=== PATIENT | female | born 1985 | race American Indian/Alaskan Native ===

== ENCOUNTER 2017-01-01 14:42 | Emergency (ER) | payer MEDICARE ==
[2017-01-01 14:50] VITALS: BP 148/92
[2017-01-01] MEDS ORDERED: FUL-GLO OP ONE (19:30)
[2017-01-01] MEDS ORDERED: TETRACAINE 0.5% OU PRN (19:30)
--- NOTE | 2017-01-01 20:07 | Emergency Department Report ---
ED Eye Problem HPI - General Chief complaint: Eye Problems Stated complaint: EYES SWOLLEN, RED Time Seen by Provider: 01/01/17 16:50 Source: patient Mode of arrival: Ambulatory Limitations: No Limitations - History of Present Illness Initial comments: This is a 31-year-old female nontoxic, well nourished in appearance, no acute signs of distress presents to the ED with c/o of bilateral eye redness and irritation x2 days. Patient denies any trauma. Denies any foreign body sensation. Patient stated she was putting on make-up and false eyelashes prior to these symptoms. Patient also stated she wake up with bilateral eye crusting and itching. Patient denies any eye pain. Denies any visual changes, blurry vision, chest pain, shortness of breathe, fever, chills, headache, stiff neck, numbness, or tingling. Patient denies any allergies. PMH includes HTN. MD chief complaint: eye redness, other (irritation) -: days(s) (2) Onset Description: gradual Location: both eyes Place: home If Injury: none Eye Symptoms: burning, redness, itching, discharge Severity: mild Severity scale (0 -10): 8 If Pain, Quality: burning Consistency: constant Associated Symptoms: none. denies: headache, neck pain, nausea/vomiting, cough , rhinorrhea, fever, shortness of breath Treatments Prior to Arrival: none - Related Data Home Medications Medication Instructions Recorded Confirmed Last Taken diphenhydrAMINE [Benadryl] 03/31/13 03/31/13 Unknown Previous Rx's Medication Instructions Recorded Last Taken Type Polymyxin B Sulf/Trimethoprim 2 drop OU DAILY 7 Days 01/01/17 Unknown Rx [Polytrim Eye Drops] Allergies Allergy/AdvReac Type Severity Reaction Status Date / Time No Known Allergies Allergy Unverified 03/31/13 16:57 ED Review of Systems ROS: Stated complaint: EYES SWOLLEN, RED Other details as noted in HPI Constitutional: denies: chills, fever Eyes: eye discharge. denies: eye pain, vision change ENT: denies: ear pain, throat pain Respiratory: denies: cough, shortness of breath, wheezing Cardiovascular: denies: chest pain, palpitations Endocrine: no symptoms reported Gastrointestinal: denies: abdominal pain, nausea, diarrhea Genitourinary: denies: urgency, dysuria, discharge Musculoskeletal: denies: back pain, joint swelling, arthralgia Skin: denies: rash, lesions Neurological: denies: headache, weakness, paresthesias Psychiatric: denies: anxiety, depression Hematological/Lymphatic: denies: easy bleeding, easy bruising ED Past Medical Hx - Past Medical History Previous Medical History?: Yes Hx Hypertension: Yes (with ) Additional medical history: Vaginal delivery x 2 - Surgical History Past Surgical History?: No - Social History Smoking Status: Former Smoker Substance Use Type: Alcohol - Medications Home Medications: Home Medications Medication Instructions Recorded Confirmed Last Taken Type diphenhydrAMINE [Benadryl] 03/31/13 03/31/13 Unknown History Polymyxin B Sulf/Trimethoprim 2 drop OU DAILY 7 Days 01/01/17 Unknown Rx [Polytrim Eye Drops] ED Physical Exam - General Limitations: No Limitations General appearance: alert, in no apparent distress - Head Head exam: Present: atraumatic, normocephalic - Eye Eye exam: Present: normal appearance, PERRL, EOMI. Absent: scleral icterus, conjunctival injection, nystagmus, periorbital swelling, periorbital tenderness Pupils: Present: normal accommodation - Expanded Eye Exam Expanded Eyelids: Normal Inspection: Right (bilateal) Pupils: Regular, Round: Bilateral, Reactive: Bilateral Sclera/Conjunctival: Normal Inspection: Bilateral (with erythema of sclera), Exudate: Bilateral (with crusting) Visual acuity (R) = 20/: 40 Visual acuity (L) = 20/: 40 With correction: No IOP measured with: Tonopen (18 right and 16 left) - ENT ENT exam: Present: normal exam, normal orophraynx, mucous membranes moist, TM's normal bilaterally, normal external ear exam - Neck Neck exam: Present: normal inspection, full ROM. Absent: tenderness, meningismus, lymphadenopathy, thyromegaly - Respiratory Respiratory exam: Present: normal lung sounds bilaterally. Absent: respiratory distress, wheezes, rales, rhonchi, stridor, chest wall tenderness, accessory muscle use, decreased breath sounds, prolonged expiratory - Cardiovascular Cardiovascular Exam: Present: regular rate, normal rhythm, normal heart sounds. Absent: systolic murmur, diastolic murmur, rubs, gallop - GI/Abdominal GI/Abdominal exam: Present: soft, normal bowel sounds. Absent: distended, tenderness, guarding, rebound, rigid, diminished bowel sounds - Rectal Rectal exam: Present: deferred - Extremities Exam Extremities exam: Present: normal inspection, full ROM, normal capillary refill. Absent: tenderness, pedal edema, joint swelling, calf tenderness - Back Exam Back exam: Present: normal inspection, full ROM. Absent: tenderness, CVA tenderness (R), CVA tenderness (L), muscle spasm, paraspinal tenderness, vertebral tenderness, rash noted - Neurological Exam Neurological exam: Present: alert, oriented X3, CN II-XII intact, normal gait, reflexes normal - Psychiatric Psychiatric exam: Present: normal affect, normal mood - Skin Skin exam: Present: warm, dry, intact, normal color. Absent: rash - Other Other exam information: Under Gloria lamp, I used fluorescein and tetracaine to examine cornea for corneal abrasion or foreign body, negative for coronary abrasion or foreign body noted upon exam. ED Course Vital Signs 01/01/17 14:46 Temperature 99 F Pulse Rate 104 H Respiratory 20 Rate Blood Pressure 148/92 O2 Sat by Pulse 100 Oximetry - Reevaluation(s) Reevaluation #1: 01/01/17 20:14 Patient is speaking in full sentences with no signs of distress noted. ED Medical Decision Making - Medical Decision Making 31-year-old female that presents with conjunctives. Patient was examined by me and patient is stable. Under Gloria lamp, I used fluorescein and tetracaine to examine cornea for corneal abrasion or foreign body, negative for coronary abrasion or foreign body noted upon exam. Normal Tonopen levels. Visual acuity bilaterally 20/40. Patient will be treated for conjunctives with polytrim. Patient was instructed Follow-up with a primary care doctor/quality manager in 3 -5 days or if symptoms worsen and continue return to emergency room as soon as possible. At time time of discharge, the patient does not seem toxic or ill in appearance. No acute signs of distress noted. Patient agrees to discharge treatment plan of care. No further questions noted by the patient. Critical care attestation.: If time is entered above; I have spent that time in minutes in the direct care of this critically ill patient, excluding procedure time. ED Disposition Clinical Impression: Conjunctivitis Qualifiers: Conjunctivitis type: acute Acute conjunctivitis type: unspecified Laterality: bilateral Qualified Code(s): H10.33 - Unspecified acute conjunctivitis, bilateral Disposition: DC-01 TO HOME OR SELFCARE Is pt being admited?: No Does the pt Need Aspirin: No Condition: Stable Instructions: Conjunctivitis (ED), Antibiotic Combinations (Into the eye) Additional Instructions: Follow-up with a primary care doctor/quality manager in 3-5 days or if symptoms worsen and continue return to emergency room as soon as possible. Prescriptions: Polymyxin B Sulf/Trimethoprim [Polytrim Eye Drops] 2 drop OU DAILY 7 Days Referrals: PRIMARY CAREMD [Primary Care Provider] - 3-5 Days MARY ROSE MD [Staff Physician] - 3-5 Days [facility] [Outside] - 3-5 Days [facility] [Outside] - 3-5 Days SABRINA ALEX MD [Staff Physician] - 3-5 Days Forms: Work/School Release Form(ED)
== END 2017-01-01 20:35 | disposition home or self-care (01) ==
LOC: ED 14:42
DX: H10.33 Unspecified acute conjunctivitis, bilateral (principal); I10 Essential (primary) hypertension

== ENCOUNTER 2017-03-14 05:58 | Emergency (ER) | payer MEDICARE ==
[2017-03-14 06:19] VITALS: BP 115/89
[2017-03-14 12:18] LABS: Basophils % (Auto) 0.4 % (0.0-1.8); Eosinophils # (Auto) 0.2 K/mm3 (0.0-0.4); Eosinophils % (Auto) 3.7 % (0.0-4.3); Hematocrit 38.3 % (30.3-42.9); Hemoglobin 12.2 gm/dl (10.1-14.3); Lymphocytes # (Auto) 2.3 K/mm3 (1.2-5.4); Lymphocytes % (Auto) 42.4 % (13.4-35.0); Mean Corpuscular HGB Conc 32 % (30-34); Mean Corpuscular Hemoglobin 27 pg (28-32); Mean Corpuscular Volume 85 fl (79-97); Monocytes # (Auto) 0.5 K/mm3 (0.0-0.8); Monocytes % (Auto) 8.9 % (0.0-7.3); Platelet Count 264 K/mm3 (140-440); Red Blood Count 4.52 M/mm3 (3.65-5.03)
[2017-03-14 12:36] LABS: BUN/Creatinine Ratio 17; Blood Urea Nitrogen 10 mg/dL (7-17); Calcium 8.8 mg/dL (8.4-10.2); Hemolysis Index 3
[2017-03-14 14:54] LABS: Bilirubin,Urine NEG (Negative); Blood,Urine NEG (Negative); Color,Urine Yellow (Yellow); Mucus,Urine FEW /HPF; Nitrite,Urine NEG (Negative); Protein,Urine <15 mg/dL mg/dL (Negative); RBC,Urine < 1.0 /HPF (0.0-6.0)
[2017-03-14 14:59] LABS: Amphetamine Screen,Urine PRESUMPTIVE NEGATIVE; Benzodiazepines Screen,Urine PRESUMPTIVE NEGATIVE; Cannabinoid Screen,Urine PRESUMPTIVE NEGATIVE; Cocaine Screen,Urine PRESUMPTIVE NEGATIVE; Methadone Screen,Urine PRESUMPTIVE NEGATIVE; Opiate Screen,Urine PRESUMPTIVE NEGATIVE
== END 2017-03-14 16:30 | disposition left against medical advice (07) ==
LOC: ED 05:58
DX: Z53.21 Procedure and treatment not carried out due to patient leaving prior to being seen by health care provider (principal)
CPT/HCPCS: 36415; 80048; 80307; 81001; 85025; 87116; 87430; G0480; 80320

== ENCOUNTER 2018-03-13 14:19 | Emergency (ER) | payer MEDICARE ==
[2018-03-13 15:02] VITALS: BP 134/74
--- NOTE | 2018-03-13 16:35 | Emergency Department Report ---
ED General Adult HPI - General Chief complaint: Skin Rash Stated complaint: CONTACT W/COMBAT POISON Time Seen by Provider: 03/13/18 16:03 Source: patient Mode of arrival: Ambulatory Limitations: No Limitations - History of Present Illness Initial comments: Patient presents to emergency department with a chief complaint of a rash on her hands and arms that started 2 days ago. Patient denies fever or any contact with wild foliage -: Sudden Location: upper extremity Radiation: non-radiation Severity scale (0 -10): 0 Consistency: constant Improves with: none Worsens with: none Associated Symptoms: denies other symptoms Treatments Prior to Arrival: none - Related Data Home Medications Medication Instructions Recorded Confirmed Last Taken diphenhydrAMINE [Benadryl] 03/31/13 03/31/13 Unknown Previous Rx's Medication Instructions Recorded Last Taken Type Polymyxin B Sulf/Trimethoprim 2 drop OU DAILY 7 Days drops 01/01/17 Unknown Rx [Polytrim Eye Drops] Permethrin 5% [Acticin 5% CREAM] 1 applicatio TP ONCE #2 tube 03/13/18 Unknown Rx Allergies Allergy/AdvReac Type Severity Reaction Status Date / Time No Known Allergies Allergy Verified 03/13/18 15:02 ED Review of Systems ROS: Stated complaint: CONTACT W/COMBAT POISON Other details as noted in HPI Constitutional: denies: chills, fever Eyes: denies: eye pain, eye discharge, vision change ENT: denies: ear pain, throat pain Respiratory: denies: cough, shortness of breath, wheezing Cardiovascular: denies: chest pain, palpitations Endocrine: no symptoms reported Gastrointestinal: denies: abdominal pain, nausea, diarrhea Genitourinary: denies: urgency, dysuria, discharge Musculoskeletal: denies: back pain, joint swelling, arthralgia Skin: rash. denies: lesions Neurological: denies: headache, weakness, paresthesias Psychiatric: denies: anxiety, depression Hematological/Lymphatic: denies: easy bleeding, easy bruising ED Past Medical Hx - Past Medical History Previous Medical History?: Yes Hx Hypertension: Yes (with ) Additional medical history: Vaginal delivery x 2 - Surgical History Past Surgical History?: No - Social History Smoking Status: Never Smoker Substance Use Type: None - Medications Home Medications: Home Medications Medication Instructions Recorded Confirmed Last Taken Type diphenhydrAMINE [Benadryl] 03/31/13 03/31/13 Unknown History Polymyxin B Sulf/Trimethoprim 2 drop OU DAILY 7 Days drops 01/01/17 Unknown Rx [Polytrim Eye Drops] Permethrin 5% [Acticin 5% CREAM] 1 applicatio TP ONCE #2 tube 03/13/18 Unknown Rx ED Physical Exam - General Limitations: No Limitations General appearance: alert, in no apparent distress - Head Head exam: Present: atraumatic, normocephalic - Eye Eye exam: Present: normal appearance - ENT ENT exam: Present: mucous membranes moist - Neck Neck exam: Present: normal inspection - Respiratory Respiratory exam: Present: normal lung sounds bilaterally. Absent: respiratory distress - Cardiovascular Cardiovascular Exam: Present: regular rate, normal rhythm. Absent: systolic murmur, diastolic murmur, rubs, gallop - GI/Abdominal GI/Abdominal exam: Present: soft, normal bowel sounds - Extremities Exam Extremities exam: Present: normal inspection - Back Exam Back exam: Present: normal inspection - Neurological Exam Neurological exam: Present: alert, oriented X3 - Psychiatric Psychiatric exam: Present: normal affect, normal mood - Skin Skin exam: Present: warm, dry, intact, normal color, rash (rash consistent with scabies of the hands and arms) ED Course Vital Signs 03/13/18 15:00 Temperature 99 F Pulse Rate 73 Respiratory 18 Rate Blood Pressure 134/74 O2 Sat by Pulse 98 Oximetry ED Medical Decision Making - Medical Decision Making Discussed plan of care with the patient Critical care attestation.: If time is entered above; I have spent that time in minutes in the direct care of this critically ill patient, excluding procedure time. ED Disposition Clinical Impression: Scabies Disposition: - TO HOME OR SELFCARE Is pt being admited?: No Does the pt Need Aspirin: No Condition: Stable Instructions: Scabies (ED) Additional Instructions: return if worse Prescriptions: Permethrin 5% [Acticin 5% CREAM] 1 applicatio TP ONCE #2 tube Referrals: SABRINA MONDRAGON MD [Primary Care Provider] - 3-5 Days Time of Disposition: 16:39
== END 2018-03-13 16:54 | disposition home or self-care (01) ==
LOC: ED 14:19
DX: B86 Scabies (principal)
CPT/HCPCS: 99281; 99282

== ENCOUNTER 2018-05-30 14:12 | Emergency (ER) | payer MEDICARE ==
[2018-05-30 14:34] VITALS: BP 136/94
--- NOTE | 2018-05-30 14:39 | Emergency Department Report ---
Blank Doc - Documentation Documentation: 32 y o female presents with abdominal and feet x 2 days states doesnt recall b eing bit by any insect acc evaluate
--- NOTE | 2018-05-30 17:39 | Emergency Department Report ---
Chief Complaint: Skin Rash Stated Complaint: BLISTERS ON STOMACH/MENSTRUAL BLEEDING Time Seen by Provider: 05/30/18 14:32 - HPI History of Present Illness: Ms. Pereira is a 32 yo female who presents with request for female hygiene materials and referral to low income housing. Provided referral to shelters. Dc'd home. MSE performed. - Exam Vital Signs: Vital Signs 05/30/18 14:33 Temperature 98.1 F Pulse Rate 79 Respiratory 16 Rate Blood Pressure 136/94 O2 Sat by Pulse 98 Oximetry MSE screening note: Focused history and physical exam performed. Due to findings the following was ordered: ED Disposition for MSE Condition: Stable Referrals: LISY VIADL MD [Other] - 3-5 Days
== END 2018-05-30 17:57 | disposition left against medical advice (07) ==
LOC: ED 14:12
DX: S30.821A Blister (nonthermal) of abdominal wall, initial encounter (principal); Z53.21 Procedure and treatment not carried out due to patient leaving prior to being seen by health care provider; X58.XXXA Exposure to other specified factors, initial encounter; Y93.89 Activity, other specified; Y92.89 Other specified places as the place of occurrence of the external cause; Y99.8 Other external cause status

== ENCOUNTER 2018-07-11 16:16 | Emergency (ER) | payer MEDICARE ==
--- NOTE | 2018-07-11 16:25 | Emergency Department Report ---
Blank Doc - Documentation Documentation: Pt states she has "parasites" coming out of the bilateral arms itch states it has happened before, went to [facility], states she did not have any treatment no recent travel no PMHx no allergy to meds former smoker +drinker +marijuana denies HI/SI denies hallucinations
[2018-07-11 16:26] VITALS: BP 132/72
--- NOTE | 2018-07-11 17:54 | Emergency Department Report ---
ED Rash HPI - HPI Chief Complaint: Skin Rash Stated Complaint: RASH Time Seen by Provider: 07/11/18 16:22 Rash Symptoms: Yes Itching, No Facial Swelling, No Tongue/Oral Swelling, No Breathing Difficulties, No Choking Sensation, No Wheezing/Dyspnea, No Peeling, No Blistering, No Fever, No Lightheaded, No Malaise, No Myalgias Severity: mild Other History: Pt is a 32 yo female who presents to the ED with c/o a rash to the BUE that began a week ago. she states she has been constantly scratching. The patient was concerned for parasites but has not seen any bugs on the skin. She states she did see one bug bite to the LUE. She denies any new medications, soaps, detergents. She denies any recent travel. SHe denies sleeping in a different place. no PMHx. no allergy to meds. former smoker. +drinker. +marijuana. denies HI/SI. denies hallucinations ED Review of Systems ROS: Stated complaint: RASH Other details as noted in HPI Comment: All other systems reviewed and negative ED Past Medical Hx - Past Medical History Previous Medical History?: Yes Hx Hypertension: Yes (with ) Additional medical history: Vaginal delivery x 2 - Surgical History Past Surgical History?: No - Social History Smoking Status: Former Smoker Substance Use Type: Alcohol, Marijuana - Medications Home Medications: Home Medications Medication Instructions Recorded Confirmed Last Taken Type Polymyxin B Sulf/Trimethoprim 2 drop OU DAILY 7 Days drops 01/01/17 Unknown Rx [Polytrim Eye Drops] Permethrin 5% [Acticin 5% CREAM] 1 applicatio TP ONCE #2 tube 03/13/18 Unknown Rx Bacitracin Zinc Oint [Antibiotic 1 gm TP BID #1 oint...g. 07/11/18 Unknown Rx Oint] Hydrocortisone 0.5% (Nf) 1 applicatio TP TID #1 tube 07/11/18 Unknown Rx [Hydrocortisone 0.5% OINT] diphenhydrAMINE [Benadryl CAP] 25 mg PO Q8HR PRN #14 capsule 07/11/18 Unknown Rx Rash Exam - Exam General: Vital signs noted. No distress. Alert and acting appropriately. HEENT: No Periorbital Edema, No Conjuctival Injection, No Chemosis, No Perioral Edema, No Tongue Edema, No Uvular Edema, No Compromised Airway, No Drooling Lungs: Yes Good Air Exchange, No Wheezes, No Ronchi, No Stridor, No Cough, No Labored Respirations, No Retractions, No Use of Accessory Muscles, No Other Abnormal Lung Sounds Heart: Yes Regular, No Murmur Skin: Yes Other (pt has two small papules to the left UE which pt has appeared to be scratching has very small amount of surrounding erythema, no drainage, no induration, no fluctuance, pt has multiple areas where she has been scratching to the BUE, no burrowing, no blistering) ED Course Vital Signs 07/11/18 16:22 Temperature 98.2 F Pulse Rate 61 Respiratory 18 Rate Blood Pressure 132/72 O2 Sat by Pulse 99 Oximetry ED Medical Decision Making - Medical Decision Making on examination pt has two small insect bites to the LUE, pt has appeared to have been scratching the bilateral arms, no urticaria, no burrowing of the skin, no rash in the webs of the fingers, no blisters, no visualized insects under the skin, no visualized insects on the skin, no fluctuance, no drainage, pt given prescription for benadryl, hydrocortisone cream, and bacitracin ointment. advised pt to use as prescribed. follow up with PCP in the next 2-3 days for reevaluation. return to the emergency room for any new or worsening symptoms. Critical care attestation.: If time is entered above; I have spent that time in minutes in the direct care of this critically ill patient, excluding procedure time. ED Disposition Clinical Impression: Rash Insect bite Qualifiers: Encounter type: initial encounter Site of insect bite: upper arm Laterality: left Qualified Code(s): S40.862A - Insect bite (nonvenomous) of left upper arm, initial encounter Disposition: - TO HOME OR SELFCARE Is pt being admited?: No Does the pt Need Aspirin: No Condition: Stable Instructions: Insect Bite or Sting (ED), Acute Rash (ED) Additional Instructions: Please use medication as prescribed. do not drive or operate heavy machinery while taking benadryl. follow up with a primary care doctor in the next 2-3 days. return to the emergency room for any new or worsening symptoms. Prescriptions: Bacitracin Zinc Oint [Antibiotic Oint] 1 gm TP BID #1 oint...g. diphenhydrAMINE [Benadryl CAP] 25 mg PO Q8HR PRN #14 capsule PRN Reason: Itching Hydrocortisone 0.5% (Nf) [Hydrocortisone 0.5% OINT] 1 applicatio TP TID #1 tube Referrals: [facility] [Outside] - 2-3 Days Time of Disposition: 17:55 Print Language: LUX[place]BOURG[place]
== END 2018-07-11 18:05 | disposition home or self-care (01) ==
LOC: ED 16:16
DX: S40.862A Insect bite (nonvenomous) of left upper arm, initial encounter (principal); F12.10 Cannabis abuse, uncomplicated; Z87.891 Personal history of nicotine dependence; W57.XXXA Bitten or stung by nonvenomous insect and other nonvenomous arthropods, initial encounter; Y93.89 Activity, other specified; Y92.89 Other specified places as the place of occurrence of the external cause; Y99.8 Other external cause status
CPT/HCPCS: 99282

== ENCOUNTER 2018-08-14 02:27 | Emergency (ER) | payer MEDICARE ==
[2018-08-14 02:35] VITALS: BP 134/80
[2018-08-14] MEDS ORDERED: PEPCID PO ONE (03:44)
[2018-08-14] MEDS ORDERED: DELTASONE PO ONE (03:44)
[2018-08-14] MEDS ORDERED: BENADRYL PO ONE (03:44)
--- NOTE | 2018-08-14 03:51 | Emergency Department Report ---
ED Rash HPI - HPI Chief Complaint: Skin Rash Stated Complaint: SKIN RASH/FEVER Time Seen by Provider: 08/14/18 03:43 Duration: 1 Day Location: Neck, Back, Abdomen, Upper Extremities Suspected Cause: Insect Rash Symptoms: Yes Itching, Yes Malaise, No Facial Swelling, No Tongue/Oral Swelling, No Breathing Difficulties, No Choking Sensation, No Wheezing/Dyspnea, No Peeling, No Blistering, No Fever, No Lightheaded, No Myalgias Severity: mild, moderate Other History: pt is a 32 y/o aaf who presents for rash to bilat arms neck trunck and neck x 2 days states she saw bed bug earlier today itching erythema since pt denies sob no wheezing no hives at this time. ED Review of Systems ROS: Stated complaint: SKIN RASH/FEVER Other details as noted in HPI Constitutional: denies: chills, fever Eyes: denies: eye pain, eye discharge, vision change ENT: denies: ear pain, throat pain Respiratory: denies: cough, shortness of breath, wheezing Cardiovascular: edema, syncope, paroxysmal nocturnal dyspnea. denies: chest pain, palpitations Endocrine: no symptoms reported. denies: see HPI Gastrointestinal: denies: abdominal pain, nausea, diarrhea Genitourinary: hematuria. denies: urgency, dysuria, discharge Musculoskeletal: denies: back pain, joint swelling, arthralgia Skin: as per HPI, rash Neurological: denies: headache, weakness, paresthesias Psychiatric: denies: anxiety, depression Hematological/Lymphatic: denies: easy bleeding, easy bruising ED Past Medical Hx - Past Medical History Previous Medical History?: Yes Hx Hypertension: Yes (with ) Additional medical history: Vaginal delivery x 2 - Surgical History Past Surgical History?: No Hx Coronary Stent: Yes - Social History Smoking Status: Current Every Day Smoker Substance Use Type: None - Medications Home Medications: Home Medications Medication Instructions Recorded Confirmed Last Taken Type Polymyxin B Sulf/Trimethoprim 2 drop OU DAILY 7 Days drops 01/01/17 Unknown Rx [Polytrim Eye Drops] Permethrin 5% [Acticin 5% CREAM] 1 applicatio TP ONCE #2 tube 03/13/18 Unknown Rx Bacitracin Zinc Oint [Antibiotic 1 gm TP BID #1 oint...g. 07/11/18 Unknown Rx Oint] Hydrocortisone 0.5% (Nf) 1 applicatio TP TID #1 tube 07/11/18 Unknown Rx [Hydrocortisone 0.5% OINT] diphenhydrAMINE [Benadryl CAP] 25 mg PO Q8HR PRN #14 capsule 07/11/18 Unknown Rx Famotidine [Pepcid] 20 mg PO BID 7 Days #21 tablet 08/14/18 Unknown Rx Triamcinolone Aceton 0.1% (Nf) 1 applic TP BID #1 tube 08/14/18 Unknown Rx [Kenalog (NF)] diphenhydrAMINE [Benadryl CAP] 25 mg PO Q6HR PRN 7 Days #28 08/14/18 Unknown Rx capsule predniSONE [Deltasone] 40 mg PO .TAPER 5 Days #21 tab 08/14/18 Unknown Rx Rash Exam - Exam General: Vital signs noted. No distress. Alert and acting appropriately. HEENT: No Perioral Edema, No Tongue Edema Lungs: Yes Good Air Exchange, Yes Wheezes, Yes Labored Respirations, Yes Retractions, No Ronchi, No Stridor, No Cough, No Use of Accessory Muscles, No Other Abnormal Lung Sounds Heart: No Regular, No Murmur Skin: Yes Urticarial Rash, No Maculopapular Rash, No Morbilliform rash, No Bulla(e), No Excoriations, No Weeping, No Tenderness, No Erythema, No Edema, No Encrustations Other: Negative: Abdomen Normal, Neurologic Normal, Musculoskeletal Normal ED Course Vital Signs 08/14/18 02:31 Temperature 99.3 F Pulse Rate 87 Respiratory 18 Rate Blood Pressure 134/80 O2 Sat by Pulse 99 Oximetry - Laceration /Wound Repair Right Upper Wound Location: head Wound Length (cm): 1 Wound's Depth, Shape: superficial Wound Explored: clean Betadine Prep?: Yes Volume Anesthetic (ccs): 0 Wound Debrided: none required Wound Repaired With: sutures Suture Size/Type: 3:0 Deep Layer Suture Size/Type: 5:0 Number Deep Layer Sutures: 0 Sterile Dressing Applied?: No ED Medical Decision Making - EKG Data When compared to previous EKG there are: no significant change - Medical Decision Making th is an allergic reaction to insect bite , rash is red raised, no weeping , no fever no chills plan: benadryl pepcid, prednisone, pt verbalized agreement and undersanding of safe. Critical care attestation.: If time is entered above; I have spent that time in minutes in the direct care of this critically ill patient, excluding procedure time. ED Disposition Clinical Impression: Dermatitis Disposition: DC- TO HOME OR SELFCARE Is pt being admited?: No Does the pt Need Aspirin: No Condition: Critical Instructions: Contact Dermatitis (ED), Anal Itching (ED) Prescriptions: diphenhydrAMINE [Benadryl CAP] 25 mg PO Q6HR PRN 7 Days #28 capsule PRN Reason: itching allergies predniSONE [Deltasone] 40 mg PO .TAPER 5 Days #21 tab Triamcinolone Aceton 0.1% (Nf) [Kenalog (NF)] 1 applic TP BID #1 tube Famotidine [Pepcid] 20 mg PO BID 7 Days #21 tablet Referrals: DANNY HARRINGTON MD [Staff Physician] - 3-5 Days Forms: Work/School Release Form(ED) Time of Disposition: 04:27
[2018-08-14] MEDS ORDERED: KENALOG TP SCH (10:00)
== END 2018-08-14 04:40 | disposition home or self-care (01) ==
LOC: ED 02:27
DX: S01.81XA Laceration without foreign body of other part of head, initial encounter (principal); L30.9 Dermatitis, unspecified; I10 Essential (primary) hypertension; F17.200 Nicotine dependence, unspecified, uncomplicated; Z95.1 Presence of aortocoronary bypass graft; Z79.899 Other long term (current) drug therapy; X58.XXXA Exposure to other specified factors, initial encounter; Y93.89 Activity, other specified; Y92.89 Other specified places as the place of occurrence of the external cause; Y99.8 Other external cause status
CPT/HCPCS: 12011; 99282; J7512

== ENCOUNTER 2019-02-11 17:29 | Emergency (ER) | payer MEDICARE ==
[2019-02-11 21:43] VITALS: BP 136/73
--- NOTE | 2019-02-11 21:44 | Emergency Department Report ---
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 Discussed with patient that if she was concerned for STD she could be seen at the health Department for full STD panel for routine STD testing may use neosporin or triple antibiotic cream. follow up with a primary care doctor and the health department. return to the emergency room for any new or worsening symptoms Patient is presenting with a nonmedical emergency at this time medical screening examination performed and there is no threat to life or limb at this time MSE screening note: Focused history and physical exam performed. ED Disposition for MSE Clinical Impression: Abrasion of right thigh Qualifiers: Encounter type: initial encounter Qualified Code(s): S70.311A - Abrasion, right thigh, initial encounter Disposition: MED SCREENING EXAM-LEFT Is pt being admited?: No Does the pt Need Aspirin: No Condition: Stable Instructions: Abrasion (ED) Additional Instructions: may use neosporin or triple antibiotic cream. follow up with a primary care doctor and the health department. return to the emergency room for any new or worsening symptoms Referrals: [facility] [Outside] - 3-5 Days [facility] [Outside] - 3-5 Days Time of Disposition: 21:45 Print Language: ESTONIAN
== END 2019-02-11 22:14 | disposition left against medical advice (07) ==
LOC: ED 17:29
DX: S70.311A Abrasion, right thigh, initial encounter (principal); X58.XXXA Exposure to other specified factors, initial encounter; Y93.89 Activity, other specified; Y92.89 Other specified places as the place of occurrence of the external cause; Y99.8 Other external cause status
CPT/HCPCS: 99281

== ENCOUNTER 2019-04-27 11:01 | Emergency (ER) | payer MEDICARE | END 2019-04-27 14:45 | LOC: ED 11:01 | DX: E86.0 Dehydration (principal); Z53.21 Procedure and treatment not carried out due to patient leaving prior to being seen by health care provider ==

== ENCOUNTER 2020-03-22 00:52 | Emergency (ER) | payer MEDICARE ==
[2020-03-22 01:05] VITALS: BP 123/83
[2020-03-22] MEDS ORDERED: FAMOTIDINE 20 MG/2 ML INJ IV ONE (01:12)
--- NOTE | 2020-03-22 01:23 | Emergency Department Report ---
ED General Adult HPI - General Chief complaint: Allergic Reaction Stated complaint: ALLERGIC REACTION Time Seen by Provider: 03/22/20 01:11 Source: patient Mode of arrival: Ambulatory Limitations: No Limitations - History of Present Illness Initial comments: Pt is a 34 y/o aaf with hx of allergic reactions who presents for itching, hives, and facial swelling x 2 hrs , pt states she ate pine nuts at home and bega to break out in rash , Rash is described as itching, buring, and hives. symptoms exacerbated itch scratch cycle , symptoms relieved by itch scratch cycle. pt denies sob, no wheezing, no stridor, no chest pain. Paramedics did respond to scene pt tx'd in field wtih solumedrol and benadryl, IV, which is improving symptoms - Related Data Previous Rx's Medication Instructions Recorded Last Taken Type Polymyxin B Sulf/Trimethoprim 2 drop OU DAILY 7 Days drops 01/01/17 Unknown Rx [Polytrim Eye Drops] Permethrin 5% [Acticin 5% CREAM] 1 applicatio TP ONCE #2 tube 03/13/18 Unknown Rx Bacitracin Zinc Oint [Antibiotic 1 gm TP BID #1 oint...g. 07/11/18 Unknown Rx Oint] Hydrocortisone 0.5% (Nf) 1 applicatio TP TID #1 tube 07/11/18 Unknown Rx [Hydrocortisone 0.5% OINT] diphenhydrAMINE [Benadryl CAP] 25 mg PO Q8HR PRN #14 capsule 07/11/18 Unknown Rx Famotidine [Pepcid] 20 mg PO BID 7 Days #21 tablet 08/14/18 Unknown Rx Triamcinolone Aceton 0.1% (Nf) 1 applic TP BID #1 tube 08/14/18 Unknown Rx [Kenalog (NF)] diphenhydrAMINE [Benadryl CAP] 25 mg PO Q6HR PRN 7 Days #28 08/14/18 Unknown Rx capsule predniSONE 40 mg PO .TAPER 5 Days #21 tab 08/14/18 Unknown Rx EPINEPHrine [Epipen 2-Lucho] 0.3 mg IM PRN PRN #1 each 03/22/20 Unknown Rx Famotidine [Pepcid] 20 mg PO BID PRN 7 Days #14 tablet 03/22/20 Unknown Rx diphenhydrAMINE [Benadryl CAP] 25 mg PO Q6HR PRN #30 capsule 03/22/20 Unknown Rx predniSONE [Deltasone] 40 mg PO QDAY 5 Days #10 tab 03/22/20 Unknown Rx Allergies Allergy/AdvReac Type Severity Reaction Status Date / Time NUTS Allergy Hives Uncoded 03/22/20 00:55 ED Review of Systems ROS: Stated complaint: ALLERGIC REACTION Other details as noted in HPI Constitutional: denies: chills, fever Eyes: denies: eye pain, eye discharge, vision change ENT: denies: ear pain, throat pain Respiratory: denies: cough, shortness of breath, wheezing Cardiovascular: denies: chest pain, palpitations Endocrine: no symptoms reported Gastrointestinal: denies: abdominal pain, nausea, vomiting, diarrhea Genitourinary: denies: urgency, dysuria, discharge Musculoskeletal: as per HPI Skin: rash (hive bilat arms right cheeck). denies: lesions, change in color, change in hair/nails, pruritus Neurological: denies: headache, weakness, numbness, paresthesias, confusion, vertigo Psychiatric: anxiety Hematological/Lymphatic: as per HPI ED Past Medical Hx - Past Medical History Previous Medical History?: Yes Hx Hypertension: Yes (with ) Additional medical history: Vaginal delivery x 2 - Surgical History Past Surgical History?: Yes Hx Coronary Stent: Yes - Social History Smoking Status: Current Every Day Smoker Substance Use Type: Marijuana - Medications Home Medications: Home Medications Medication Instructions Recorded Confirmed Last Taken Type Polymyxin B Sulf/Trimethoprim 2 drop OU DAILY 7 Days drops 01/01/17 Unknown Rx [Polytrim Eye Drops] Permethrin 5% [Acticin 5% CREAM] 1 applicatio TP ONCE #2 tube 03/13/18 Unknown Rx Bacitracin Zinc Oint [Antibiotic 1 gm TP BID #1 oint...g. 07/11/18 Unknown Rx Oint] Hydrocortisone 0.5% (Nf) 1 applicatio TP TID #1 tube 07/11/18 Unknown Rx [Hydrocortisone 0.5% OINT] diphenhydrAMINE [Benadryl CAP] 25 mg PO Q8HR PRN #14 capsule 07/11/18 Unknown Rx Famotidine [Pepcid] 20 mg PO BID 7 Days #21 tablet 08/14/18 Unknown Rx Triamcinolone Aceton 0.1% (Nf) 1 applic TP BID #1 tube 08/14/18 Unknown Rx [Kenalog (NF)] diphenhydrAMINE [Benadryl CAP] 25 mg PO Q6HR PRN 7 Days #28 08/14/18 Unknown Rx capsule predniSONE 40 mg PO .TAPER 5 Days #21 tab 08/14/18 Unknown Rx EPINEPHrine [Epipen 2-Lucho] 0.3 mg IM PRN PRN #1 each 03/22/20 Unknown Rx Famotidine [Pepcid] 20 mg PO BID PRN 7 Days #14 tablet 03/22/20 Unknown Rx diphenhydrAMINE [Benadryl CAP] 25 mg PO Q6HR PRN #30 capsule 03/22/20 Unknown Rx predniSONE [Deltasone] 40 mg PO QDAY 5 Days #10 tab 03/22/20 Unknown Rx ED Physical Exam - General Limitations: No Limitations General appearance: alert, in no apparent distress - Head Head exam: Present: atraumatic, normocephalic - Eye Eye exam: Present: normal appearance, PERRL, EOMI Pupils: Present: normal accommodation - ENT ENT exam: Present: normal orophraynx, mucous membranes moist - Neck Neck exam: Present: normal inspection. Absent: tenderness, meningismus, full ROM, lymphadenopathy, thyromegaly - Respiratory Respiratory exam: Present: normal lung sounds bilaterally. Absent: respiratory distress, wheezes, rhonchi, chest wall tenderness - Cardiovascular Cardiovascular Exam: Present: regular rate, normal rhythm, normal heart sounds. Absent: systolic murmur, diastolic murmur, rubs, gallop - GI/Abdominal GI/Abdominal exam: Present: soft, tenderness, guarding, normal bowel sounds, bruit. Absent: rebound, rigid - Rectal Rectal exam: Present: deferred - Extremities Exam Extremities exam: Present: normal inspection, full ROM. Absent: tenderness - Back Exam Back exam: Present: normal inspection, full ROM. Absent: tenderness, vertebral tenderness - Neurological Exam Neurological exam: Present: alert, oriented X3, CN II-XII intact, normal gait - Psychiatric Psychiatric exam: Present: normal affect, normal mood - Skin Skin exam: Present: warm, dry, intact, normal color, erythema (this has been vric), urticaria. Absent: rash, cyanosis, diaphoretic, petechiae, ecchymosis ED Course Vital Signs 03/22/20 00:55 Temperature 98.5 F Pulse Rate 97 H Respiratory 18 Rate Blood Pressure 123/83 Blood Pressure 123/83 [Right] O2 Sat by Pulse 99 Oximetry ED Medical Decision Making - Lab Data allergic reaction , with hive, symptoms are improving a&B - Medical Decision Making airway is patent, lungs are clear through out , no wheezing , no stridor, no sob,, rash is resolving, pt given epipen administration education , pt verbalized agreement with same , pt dc'd home in stable condition at this time. Critical care attestation.: If time is entered above; I have spent that time in minutes in the direct care o f this critically ill patient, excluding procedure time. ED Disposition Clinical Impression: Allergic reaction to food Qualifiers: Encounter type: initial encounter Qualified Code(s): T78.1XXA - Other adverse food reactions, not elsewhere classified, initial encounter Disposition: DC-01 TO HOME OR SELFCARE Is pt being admited?: No Does the pt Need Aspirin: No Condition: Stable Instructions: Food Allergy, How to Use an Auto-Injector Pen Additional Instructions: please avoid pine nuts, take medications as ordered, return to emergency if symptoms worsen Prescriptions: diphenhydrAMINE [Benadryl CAP] 25 mg PO Q6HR PRN #30 capsule PRN Reason: Allergy Symptoms predniSONE [Deltasone] 40 mg PO QDAY 5 Days #10 tab EPINEPHrine [Epipen 2-Lucho] 0.3 mg IM PRN PRN #1 each PRN Reason: allergies Famotidine [Pepcid] 20 mg PO BID PRN 7 Days #14 tablet PRN Reason: Allergy Symptoms Referrals: PRIMARY MD VANDA [Primary Care Provider] - 3-5 Days RONN PATE MD [Staff Physician] - 3-5 Days Forms: Work/School Release Form(ED) Time of Disposition: 02:41
== END 2020-03-22 03:15 | disposition home or self-care (01) ==
LOC: ED 00:52
DX: T78.1XXA Other adverse food reactions, not elsewhere classified, initial encounter (principal); F17.200 Nicotine dependence, unspecified, uncomplicated; F12.90 Cannabis use, unspecified, uncomplicated; I10 Essential (primary) hypertension; Z79.899 Other long term (current) drug therapy; Z91.018 Allergy to other foods; X58.XXXA Exposure to other specified factors, initial encounter
CPT/HCPCS: 96374; 99282

== ENCOUNTER 2021-01-20 10:48 | Emergency (ER) | payer MEDICAID, MEDICARE ==
--- NOTE | 2021-01-20 11:20 | Emergency Department Report ---
ED General Adult HPI - General Chief complaint: Nausea/Vomiting/Diarrhea Stated complaint: NAUSEA Time Seen by Provider: 01/20/21 10:56 Source: patient Mode of arrival: Ambulatory Limitations: No Limitations - History of Present Illness Initial comments: Patient presented with nausea, vomiting, and diarrhea as a chief complaint. She then proceeded to talk about having abdominal pain. She then went on to state that she came here to take a bath because she needed to shower because she was dirty. She then began to discuss having a smell or odor in the vaginal area. Patient states that she was worried about getting hit by a car. She states that she did not have any place to go and that she is homeless with her 4-year-old daughter. She apparently had been staying at her sister's but was invited not to return there. Patient then states that she needs a place to go because she has no place to be. After discussing that, she states that she has a headache. She goes through these complaints and features within approximately 5 minutes time. Patient does not have any history of hematemesis or coffee-ground emesis. She states that she does not think she is . - Related Data Home Medications Medication Instructions Recorded Confirmed Last Taken No Known Home Medications [No 01/20/21 01/20/21 Unknown Reported Home Medications] Allergies Allergy/AdvReac Type Severity Reaction Status Date / Time NUTS Allergy Hives Uncoded 03/22/20 00:55 ED Review of Systems ROS: Stated complaint: NAUSEA Other details as noted in HPI Comment: All other systems reviewed and negative Constitutional: denies: fever Eyes: denies: eye pain ENT: denies: throat pain Respiratory: denies: cough Cardiovascular: denies: chest pain Endocrine: denies: unexplained weight loss Gastrointestinal: as per HPI Genitourinary: as per HPI Musculoskeletal: denies: back pain Skin: denies: rash Neurological: as per HPI Hematological/Lymphatic: denies: easy bruising ED Past Medical Hx - Past Medical History Hx Hypertension: Yes (with ) Additional medical history: Vaginal delivery x 2 - Surgical History Hx Coronary Stent: Yes - Family History Family history: no significant - Social History Smoking Status: Current Every Day Smoker (We discussed tobacco cessation x3 minutes) Substance Use Type: Marijuana - Medications Home Medications: Home Medications Medication Instructions Recorded Confirmed Last Taken Type No Known Home Medications [No 01/20/21 01/20/21 Unknown History Reported Home Medications] ED Physical Exam - General Limitations: No Limitations, Other ( pulse ox noted and normal) General appearance: alert, in no apparent distress, obese - Head Head exam: Present: atraumatic, normocephalic, normal inspection - Eye Eye exam: Present: normal appearance, EOMI. Absent: scleral icterus - ENT ENT exam: Present: normal exam, mucous membranes moist, normal external ear exam - Neck Neck exam: Present: normal inspection. Absent: meningismus - Respiratory Respiratory exam: Present: normal lung sounds bilaterally. Absent: respiratory distress - Cardiovascular Cardiovascular Exam: Present: regular rate, normal rhythm - GI/Abdominal GI/Abdominal exam: Present: soft. Absent: tenderness - Extremities Exam Extremities exam: Present: normal capillary refill. Absent: calf tenderness - Back Exam Back exam: Absent: CVA tenderness (R), CVA tenderness (L) - Neurological Exam Neurological exam: Present: alert, oriented X3, CN II-XII intact. Absent: motor sensory deficit - Psychiatric Psychiatric exam: Present: manic ( flight of ideas and tangential thought) - Skin Skin exam: Present: warm, dry ED Course Vital Signs 01/20/21 01/20/21 10:52 12:19 Temperature 98.9 F Pulse Rate 88 77 Respiratory 18 Rate Blood Pressure 148/62 125/78 O2 Sat by Pulse 99 Oximetry - Reevaluation(s) Reevaluation #1: 01/20/21 11:20 Labs and psychiatric evaluation ordered. Old records reviewed. Reevaluation #2: 01/20/21 12:39 labs are still pending. Reevaluation #3: 01/20/21 13:24 Urine drug screen was noted. Labs are pending. Patient will be seen by psychiatric services. Disposition will be made at that time. ED Medical Decision Making - Medical Decision Making Patient presented with multiple symptoms that she rattled off in rapid succession. She demonstrated tangential thought. She had flight of ideas. Decision was made to have psychiatric services evaluate the patient as well as case management. Patient is homeless with a 4-year-old. She may benefit from being placed in a group home. She may need psychiatric admission which would then yield difficulty with placement of the child at that time. Regardless, she is awaiting psychiatric evaluation and disposition. She does not appear to be suicidal homicidal. Critical Care Time: No Critical care attestation.: If time is entered above; I have spent that time in minutes in the direct care of this critically ill patient, excluding procedure time. ED Disposition Clinical Impression: Manic behavior Disposition: 30 STILL A PATIENT Is pt being admited?: No Condition: Stable Referrals: PRIMARY CARE, [Primary Care Provider] - 3-5 Days
[2021-01-20 13:01] LABS: Amphetamine Screen,Urine Negative; Benzodiazepines Screen,Urine Negative; Cocaine Screen,Urine Negative; Methadone Screen,Urine Negative; Opiate Screen,Urine Negative
[2021-01-20 13:37] LABS: Cannabinoid Screen,Urine Positive
--- NOTE | 2021-01-20 15:33 | Emergency Department Report ---
Blank Doc - Documentation Documentation: Patient was seen by the psychiatric ornamental iron worker helper who feels that the patient needs to be a 1013 and inpatient stabilization. Since the patient's daughter is currently in the room, and she claims to be homeless without any family members who can, and take responsibility for her, we are contacting case management and child protective services. Patient will need labs and a Covid test for placement. We will continue to monitor her during her ED course.
[2021-01-20 22:57] LABS: Basophils % (Auto) 0.6 % (0.0-1.8); Eosinophils # (Auto) 0.2 K/mm3 (0.0-0.4); Eosinophils % (Auto) 3.1 % (0.0-4.3); Hematocrit 35.6 % (30.3-42.9); Hemoglobin 11.6 gm/dl (10.1-14.3); Lymphocytes # (Auto) 2.4 K/mm3 (1.2-5.4); Lymphocytes % (Auto) 47.9 % (13.4-35.0); Mean Corpuscular HGB Conc 33 % (30-34); Mean Corpuscular Volume 86 fl (79-97); Monocytes # (Auto) 0.5 K/mm3 (0.0-0.8); Monocytes % (Auto) 9.7 % (0.0-7.3); Platelet Count 287 K/mm3 (140-440); Red Blood Count 4.12 M/mm3 (3.65-5.03); Red Cell Distribution Width 13.7 % (13.2-15.2)
[2021-01-20 23:17] LABS: Alanine Aminotransferase 13 units/L (7-56); Albumin 3.8 g/dL (3.9-5); Blood Urea Nitrogen 11 mg/dL (7-17); Hemolysis Index 5
[2021-01-20 23:21] LABS: BUN/Creatinine Ratio 16
--- NOTE | 2021-01-21 10:33 | Consultation ---
History of Present Illness - Reason for Consult Consult date: 01/21/21 Reason for consult: psychosis - History of Present Psychiatric Illness The patient was seen today. She is a 35y/o female who presented to the ER for diarrhea and other physical complaints. The patient had her young child with her at that time. During the evaluation, the patient is guarded. She is at times speaking in a barely audible tone. Her thoughts are also at times disorganized. She is responding to internal stimuli. At times during the interview, she is moving her mouth or whispering as if talking to someone. When asking the patient was she hallucination she says "yes, I think I was then." I ask her what was she seeing her hearing, she becomes slightly irritable. She says "I'm looking at the light. It's bright and I see myself in the light." She says "I'm not hallucinating. My ear is hurting." I asked her was she depressed, she says "I think so." She denies any past psych history or being on any meds, although it is documented by the strategic marketing manager that she reported being at [facility] and on wellbutrin at one point. She also denies any illicit drug use, alcohol or nicotine. She denies SI/HI. PAST PSYCHIATRIC HISTORY: Diagnoses: Denies Suicide attempts or Self-harm behavior: Denies Prior psychiatric hospitalizations: Yes Substance Abuse history: Denies Previous psychiatric medications tried: Denies Outpatient treatment: Denies PAST MEDICAL HISTORY: None reported or document Family Psychiatric History: None reported or documented SOCIAL HISTORY Marital Status: Single Living Arrangements: Lives alone Employment Status: Disabled Access to guns/weapons: Denies Education: History of Abuse: Denies Legal History: Denies REVIEW OF SYSTEMS Constitutional: Negative for weight loss ENT: Negative for stridor Respiratory: Negative for cough or hemoptysis All other systems reviewed and are negative MENTAL STATUS EXAMINATION General Appearance and Behavior: Age appropriate, good hygiene, wearing appropriate clothes. guarded Cooperation: cooperative Psychomotor Behavior: Psychomotor normal Mood: depressed Affect and affective range: congruent with stated mood Thought Process: illogical, disorganized Thought Content: hallucinations, responding to internal stimuli Speech: low, soft at times inaudible Suicidal Ideation: yes Homicidal Ideation: Denies Hallucinations: Auditory Delusions: Yes Impulse Control: impaired Insight and Judgment: Poor Memory: limited Attention: Attentive Orientation: alert and oriented Assessment and Plan (1) Acute Psychosis Treatment Plan 1013 Olanzapine 5mg po daily Doxepin 10mg po qhs Prozac 10mg po daily Medical: per primary Sitter: per primary Disposition: Recommend acute psychiatric inpatient treatment Will follow. Thanks. Case staffed with Dr. Adkins Medications and Allergies Allergies Allergy/AdvReac Type Severity Reaction Status Date / Time NUTS Allergy Hives Uncoded 03/22/20 00:55 Home Medications Medication Instructions Recorded Confirmed Last Taken Type No Known Home Medications [No 01/20/21 01/20/21 Unknown History Reported Home Medications] Mental Status Exam - Vital signs Last Vital Signs Temp 99.0 F 01/21/21 09:47 Pulse 81 01/21/21 09:47 Resp 18 01/21/21 09:47 BP 112/61 01/21/21 09:47 Pulse Ox 99 01/21/21 09:47 Results Result Diagrams: 01/20/21 22:36 01/20/21 22:36 Abnormal lab results 01/20/21 01/20/21 Range/Units 22:36 22:36 Lymph % (Auto) 47.9 H (13.4-35.0) % [place] % (Auto) 9.7 H (0.0-7.3) % Seg Neutrophils % 38.7 L (40.0-70.0) % Glucose 113 H (65-100) mg/dL Albumin 3.8 L (3.9-5) g/dL All other labs normal.
[2021-01-21] MEDS: FLUoxetine 10 MG TAB PO SCH (11:49)
[2021-01-21 16:47] LABS: Bilirubin,Urine NEG (Negative); Blood,Urine NEG (Negative); Color,Urine Yellow (Yellow); Mucus,Urine 2+ /HPF; Protein,Urine <15 mg/dL mg/dL (Negative); Urobilinogen,Urine < 2.0 mg/dL (<2.0)
--- NOTE | 2021-01-21 17:14 | Event Note ---
Date: 01/21/21 35-year-old female who apparently presented with abdominal pain but was displaying symptoms of curt/psychosis requiring 1013 order. Labs were sent she was medically cleared but urinalysis and urine test were still pending. There were no acute events overnight. Vital signs reviewed and are stable. Upon review of the patient's urine test, urinalysis reveals evidence of urinary tract infection. In addition, she has a positive test. I went and assessed the patient in person to discuss these results. She confirms that she has been experiencing dysuria. She denies any vaginal bleeding. She denies any abdominal pain or nausea at this time. Her abdomen is soft and nontender. She says her last menstrual period was in early December. I have sent a quantitative beta-hCG and ordered OB ultrasound. In addition, I have sent urine culture and started the patient on Keflex 500 mg QID for 7 days.
[2021-01-21] MEDS ORDERED: cephALEXin 500 MG CAP PO SCH (22:00)
[2021-01-21] MEDS: DOXEPIN 10 MG CAP PO SCH (22:13)
[2021-01-21] MEDS ORDERED: cephALEXin 500 MG CAP PO ONE (22:31)
--- NOTE | 2021-01-21 23:24 | Ultrasound Report ---
ULTRASOUND OBSTETRIC REASON FOR EXAM: evaluate for IUP TECHNIQUE: Transabdominal and transvaginal ultrasound was performed to evaluate a first trimester pre gnancy. COMPARISON: None available. FINDINGS: Uterus measures 9.3 x 4.7 x 6.2 cm. Endometrial stripe measures 10 mm. No discrete IUP is identified. Tiny cystic structure within the region of the endometrium could reflect an early intrauterine gesta tional sac, though this is not definite. No myometrial mass. There is a 1.9 cm cystic structure within the left ovary, likely reflecting corpus luteum. Right ovar y is unremarkable. Normal color Doppler flow of the ovaries. No significant free fluid. IMPRESSION: Tiny cystic structure within the endometrium may reflect an early intrauterine gestational sac, thoug h no definite IUP is visualized at this time. Recommend continued follow-up with beta hCG and pelvic sonography, as clinically indicated. Signer Name: Andrew Lal MD Signed: 01/21/2021 11:19 PM Workstation Name: [id number]
--- NOTE | 2021-01-22 05:59 | Event Note ---
hCG 1109 ultrasound reveals tiny central structure within the endometrium. Patient does not have pain to indicate ectopic . I have informed patient that she is .
[2021-01-22] MEDS: FLUoxetine 10 MG TAB PO SCH (10:07)
[2021-01-22] MEDS: cephALEXin 500 MG CAP PO SCH ×4 (10:07→21:58)
--- NOTE | 2021-01-22 11:38 | Progress Note ---
Subjective - Reason for Consult Consult date: 01/22/21 Reason for consult: psychosis - Chief Complaint Chief complaint: The patient was seen today. She is still responding to internal stimuli. She is suspicious of things. She's looking around when she speaks. She says she sees herself in the light. When asked was she suicidal, the patient seems to think about it first, and then replies "I don't think so." REVIEW OF SYSTEMS Constitutional: Negative for weight loss ENT: Negative for stridor Respiratory: Negative for cough or hemoptysis All other systems reviewed and are negative MENTAL STATUS EXAMINATION General Appearance and Behavior: Age appropriate, good hygiene, wearing appropriate clothes. guarded Cooperation: cooperative Psychomotor Behavior: Psychomotor normal Mood: depressed Affect and affective range: congruent with stated mood Thought Process: illogical, disorganized Thought Content: hallucinations, responding to internal stimuli Speech: low, soft at times inaudible Suicidal Ideation: yes Homicidal Ideation: Denies Hallucinations: Auditory Delusions: Yes Impulse Control: impaired Insight and Judgment: Poor Memory: limited Attention: Attentive Orientation: alert and oriented Assessment and Plan (1) Acute Psychosis Treatment Plan 1013 Increased Olanzapine 10mg po daily Doxepin 10mg po qhs Prozac 10mg po daily Medical: per primary Sitter: per primary Disposition: Recommend acute psychiatric inpatient treatment Will follow. Thanks. Case staffed with Dr. Adkins Mental Status Exam - Vital signs Last Vital Signs Temp 98.6 F 01/21/21 20:09 Pulse 74 01/21/21 20:09 Resp 18 01/21/21 20:09 BP 100/50 01/21/21 20:09 Pulse Ox 97 01/22/21 09:18
--- NOTE | 2021-01-22 17:55 | Emergency Department Report ---
Blank Doc - Documentation Documentation: 35-year-old female currently on 1013. Compliant with p.o. meds. Awaiting inp atient placement.
[2021-01-22] MEDS: DOXEPIN 10 MG CAP PO SCH (21:58)
--- NOTE | 2021-01-23 08:48 | Progress Note ---
Subjective - Reason for Consult Consult date: 01/23/21 Reason for consult: psychosis - Chief Complaint Chief complaint: The patient was seen today. Although the patient reports feeling good, she is still responding to internal stimuli. The patient tells me that bugs are trying to get in her ear. She says "that's why I keep my hair over my ears." She says "and I keep hearing heavy ringing." When asking the patient was she still feeling suicidal, her answer is inappropriate, she says "I was just upset because somebody got two guns in my name." I then asked the patient again was she suicidal, she replied "I think I am a little. But I believe I'm strong enough not to do it." REVIEW OF SYSTEMS Constitutional: Negative for weight loss ENT: Negative for stridor Respiratory: Negative for cough or hemoptysis All other systems reviewed and are negative MENTAL STATUS EXAMINATION General Appearance and Behavior: Age appropriate, good hygiene, wearing appropriate clothes. guarded Cooperation: cooperative Psychomotor Behavior: Psychomotor normal Mood: depressed Affect and affective range: congruent with stated mood Thought Process: illogical, disorganized Thought Content: hallucinations, responding to internal stimuli Speech: low, soft at times inaudible Suicidal Ideation: yes Homicidal Ideation: Denies Hallucinations: Auditory Delusions: Yes Impulse Control: impaired Insight and Judgment: Poor Memory: limited Attention: Attentive Orientation: alert and oriented Assessment and Plan (1) Acute Psychosis Treatment Plan 1013 Increased Olanzapine 15mg po daily d/c Doxepin 10mg po qhs d/c Prozac 10mg po daily Start Vistaril 25mg po qhs Medical: per primary Sitter: per primary Disposition: Recommend acute psychiatric inpatient treatment Will follow. Thanks. Case staffed with Dr. Adkins Mental Status Exam - Vital signs Last Vital Signs Temp 98.3 F 01/23/21 02:31 Pulse 72 01/23/21 02:31 Resp 16 01/23/21 02:31 BP 112/66 01/23/21 02:31 Pulse Ox 100 01/23/21 02:31
[2021-01-23] MEDS: cephALEXin 500 MG CAP PO SCH ×4 (09:44→21:56)
--- NOTE | 2021-01-23 17:56 | Event Note ---
Date: 01/23/21 Patient still with significant tactile hallucination. Vital signs stable. Patient had a positive test with a beta hCG of 1107. I repeated the beta-hCG today and it went to 2289. Patient is waiting for inpatient psychiatric admission.
[2021-01-23] MEDS: hydrOXYzine PAMOATE 25 MG CAP PO SCH (21:56)
[2021-01-24] MEDS: cephALEXin 500 MG CAP PO SCH ×4 (09:39→22:01)
--- NOTE | 2021-01-24 11:43 | Progress Note ---
Subjective - Reason for Consult Consult date: 01/24/21 Reason for consult: psychosis - Chief Complaint Chief complaint: The patient was seen today. Although the patient reports feeling good, she is still responding to internal stimuli. She appears to not be forthcoming about some things. The patient is still talking about bugs and ringing in her ears. She denies SI/HI, but she pauses. The patient states she can go back to her moms, but she gives me two different number to call, they both are the wrong number. REVIEW OF SYSTEMS Constitutional: Negative for weight loss ENT: Negative for stridor Respiratory: Negative for cough or hemoptysis All other systems reviewed and are negative MENTAL STATUS EXAMINATION General Appearance and Behavior: Age appropriate, good hygiene, wearing appropriate clothes. guarded Cooperation: cooperative Psychomotor Behavior: Psychomotor normal Mood: depressed Affect and affective range: congruent with stated mood Thought Process: illogical, disorganized Thought Content: hallucinations, responding to internal stimuli Speech: low, soft at times inaudible Suicidal Ideation: yes Homicidal Ideation: Denies Hallucinations: Auditory Delusions: Yes Impulse Control: impaired Insight and Judgment: Poor Memory: limited Attention: Attentive Orientation: alert and oriented Assessment and Plan (1) Acute Psychosis Treatment Plan 1013 Continue Olanzapine 15mg po daily Vistaril 25mg po qhs Medical: per primary Sitter: per primary Disposition: Recommend acute psychiatric inpatient treatment Will follow. Thanks. Case staffed with Dr. Adkins Mental Status Exam - Vital signs Last Vital Signs Temp 97 F L 01/24/21 10:30 Pulse 82 01/24/21 10:30 Resp 16 01/24/21 10:30 BP 105/51 01/24/21 10:30 Pulse Ox 100 01/24/21 10:30
--- NOTE | 2021-01-24 12:53 | Event Note ---
Vital signs stable. Mental health team recommends acute inpatient psychiatric treatment. Patient denies abdominal pain vaginal bleeding. Recently discovered to be during medical clearance exam.
[2021-01-24] MEDS: hydrOXYzine PAMOATE 25 MG CAP PO SCH (22:01)
--- NOTE | 2021-01-25 07:35 | Progress Note ---
Subjective - Reason for Consult Consult date: 01/25/21 Reason for consult: psychosis - Chief Complaint Chief complaint: The patient was seen today. She is responding to internal stimuli. She is quiet and verbalizes feeling good, but she is still somewhat disorganized and odd acting. She is cutting her eyes toward the door as we are talking. At times she says things beneath her breath, and laughs inappropriately. She says "I don't like when people make me talk," when I ask her questions. She says "I'm just really trying to figure out what I'm going to do after this." I ask the patient how does she feel mentally, she tells me "I feel like my head is always getting hit." I ask her what did she mean by that, she says "I have an ear thing going on." REVIEW OF SYSTEMS Constitutional: Negative for weight loss ENT: Negative for stridor Respiratory: Negative for cough or hemoptysis All other systems reviewed and are negative MENTAL STATUS EXAMINATION General Appearance and Behavior: Age appropriate, good hygiene, wearing appropriate clothes. guarded Cooperation: cooperative Psychomotor Behavior: Psychomotor normal Mood: depressed Affect and affective range: congruent with stated mood Thought Process: illogical, disorganized Thought Content: hallucinations, responding to internal stimuli Speech: low, soft at times inaudible Suicidal Ideation: yes Homicidal Ideation: Denies Hallucinations: Auditory Delusions: Yes Impulse Control: impaired Insight and Judgment: Poor Memory: limited Attention: Attentive Orientation: alert and oriented Assessment and Plan (1) Acute Psychosis Treatment Plan 1013 Increase Olanzapine 20mg po daily Vistaril 25mg po qhs Medical: per primary Sitter: per primary Disposition: Recommend acute psychiatric inpatient treatment Will follow. Thanks. Case staffed with Dr. Adkins Mental Status Exam - Vital signs Last Vital Signs Temp 98.8 F 01/24/21 20:07 Pulse 90 01/24/21 20:07 Resp 16 01/24/21 20:07 BP 100/58 01/24/21 20:07 Pulse Ox 100 01/24/21 20:07
[2021-01-25] MEDS: cephALEXin 500 MG CAP PO SCH ×4 (09:36→22:20)
[2021-01-25] MEDS: hydrOXYzine PAMOATE 25 MG CAP PO SCH (22:20)
[2021-01-26 09:43] VITALS: BP 113/63
[2021-01-26] MEDS: cephALEXin 500 MG CAP PO SCH (09:57)
--- NOTE | 2021-01-26 11:08 | Progress Note ---
Subjective - Reason for Consult Consult date: 01/26/21 Reason for consult: mental health evaluation - Chief Complaint Chief complaint: The patient was seen today. She is reports that she is doing better. The patient is inquiring about housing voucher. She continues to endorse depression but denies any current suicidal/homicidal ideation and denies hallucinations. REVIEW OF SYSTEMS Constitutional: Negative for weight loss ENT: Negative for stridor Respiratory: Negative for cough or hemoptysis All other systems reviewed and are negative MENTAL STATUS EXAMINATION General Appearance and Behavior: Age appropriate, good hygiene, wearing appropriate clothes. guarded Cooperation: cooperative Psychomotor Behavior: Psychomotor normal Mood: depressed Affect and affective range: congruent with stated mood Thought Process: goal directed Thought Content: No suicidal Speech: low, soft at times inaudible Suicidal Ideation:Denies Homicidal Ideation: Denies Hallucinations: Denies Delusions: None Impulse Control: impaired Insight and Judgment: limited Memory: limited Attention: Attentive Orientation: alert and oriented Assessment and Plan (1) Acute Psychosis Treatment Plan Dc 1013 Continue Olanzapine 20mg po daily Vistaril 25mg po qhs Medical: per primary Sitter: per primary Disposition:Do not recommend acute psychiatric inpatient treatment Will sign off. Thanks. Case staffed with Dr. Adkins Mental Status Exam - Vital signs Last Vital Signs Temp 98.2 F 01/26/21 09:43 Pulse 80 01/26/21 09:43 Resp 18 01/26/21 09:43 BP 113/63 01/26/21 09:43 Pulse Ox 100 01/26/21 10:52
--- NOTE | 2021-01-26 12:05 | Event Note ---
Date: 01/26/21 35-year-old female here for SI also found to be and with UTI on Keflex. She was waiting for placement but now has been cleared for discharge by psych. She will be discharged with 5 more days of Keflex for UTI and instructions to follow-up as soon as possible with SCREENING TECHNICIAN. I discussed this with the patient who expressed understanding and agreement with this plan of care. Return precautions were explained. 1013 order was rescinded.
== END 2021-01-26 13:57 | disposition home or self-care (01) ==
LOC: EEVIPCON 10:48 → ED 10:48
DX: O99.341 Other mental disorders complicating pregnancy, first trimester (principal); F31.9 Bipolar disorder, unspecified; Z20.822 Contact with and (suspected) exposure to COVID-19; O21.9 Vomiting of pregnancy, unspecified; O26.891 Other specified pregnancy related conditions, first trimester; R19.7 Diarrhea, unspecified; I10 Essential (primary) hypertension; F17.200 Nicotine dependence, unspecified, uncomplicated; F12.90 Cannabis use, unspecified, uncomplicated; Z79.899 Other long term (current) drug therapy; Z3A.00 Weeks of gestation of pregnancy not specified
CPT/HCPCS: 36415; 76801; 80053; 80307; 81001; 84443; 84702; 84703; 85025; 87086; 99284; Q0177; U0003; 80320; J3490; G0480